=== PATIENT | male | born 1945 | race Caucasian/White ===

== ENCOUNTER → 2021-01-28 | Outpatient (CLI) | payer MEDICARE ==
[~2021-01-28] MED LIST: AMIO100T PO; CARV12.511 PO; HYDR-2761 PO; LISI10TA16 PO; LOVA40TA2 PO; METO50TA4 PO; OMEG-152 PO; SITA50TA PO; WARF3TAB50 PO
== END ==
LOC: LAB 10:08
PROVIDERS: ATTEND Ophthalmology
DX: Z01.812 Encounter for preprocedural laboratory examination (principal); Z20.822 Contact with and (suspected) exposure to COVID-19; H26.8 Other specified cataract
CPT/HCPCS: U0003; U0005

== ENCOUNTER → 2021-01-30 | Day surgery (SDC) | payer MEDICARE ==
[~2021-01-30] VITALS: Ht 175.3 cm; Wt 72.7 kg
[~2021-01-30] MED LIST changes: +CHONDROIT-SOD-HYALURONATE KIT. ONE; +CHONDROITIN-SOD-HYALURONATE 0.5 ML DISP.SYRIN. ONE; +CIPROFLOXACIN 0.3% OPHTH SOLUTION 5ML BOTTLE. OS ONE; +INSULIN LISPRO 100 UNIT/ML 3ML VIAL for OP,RR ONLY. SQ ONE; +INSULIN LISPRO 100 UNIT/ML 3ML VIAL for OP,RR ONLY. SQ PRN; +IV RINGERS,LACTATED 1000ML 1,000 ML IV SCH; +LIDOCAINE 1%/PHENYLEPH 1.5% PF OPHTH 1 ML VIAL. ONE; +LIDOCAINE 2% JELLY 6ML IN APPLICATOR. OS ONE; +NEO/POLYMYX/DEXAMETH OPHTH OINTMENT 3.5GM TUBE. ONE; +PROPARACAINE 0.5% OPHTH SOLUTION 15ML BOTTLE. OS ONE; +TRIAMCINOLONE ACET/PF OPHTH 40 MG/ML VIAL. IO ONE
[2021-01-30] MEDS: PHENYLEPHRINE 10% OPHTH SOLUTION 5ML BOTTLE. OS SCH ×3 (10:48→10:58)
[2021-01-30] MEDS: CYCLOPENTOLATE 1% OPHTH SOLUTION 2ML BOTTLE. OS SCH ×3 (10:50→11:00)
[2021-01-30 12:27] VITALS: BP 132/64
--- NOTE | 2021-01-30 12:43 | OP ---
DATE OF SURGERY: 01/30/2021 PREOPERATIVE DIAGNOSIS: Mature or incipient cataract of the left eye. PROCEDURES: Phacoemulsification with posterior chamber intraocular lens implant, with Trypan blue capsular staining and additional Viscoat to protect the endothelium. SURGEON: Kelly Stevens MD MEDICATIONS: Topical with monitored anesthesia care. DESCRIPTION OF PROCEDURE: The left eye was prepped with Betadine in the usual sterile fashion and draped. A paracentesis was performed followed by instillation of preservative-free phenylephrine admixed with lidocaine and balanced salt solution. A temporal clear corneal incision was made. Air was injected into the anterior chamber and Trypan blue was used to stain the anterior capsule. After 1 minute of duration, the Trypan blue was evacuated with Viscoat. The phacoemulsification handpiece was then used to punch the capsule to create an opening to relieve pressure from the incipient cataract. Viscoat was further injected into the anterior chamber and an adequate capsulorrhexis was performed. Balanced salt solution was used to hydrate the nucleus and it was removed in a modified stop and chop fashion, taking care to add additional Viscoat to protect the endothelium due to the mature nature of the cataract. The I/A handpiece was used to remove the remainder of the cortex and an adequate red reflex was visualized. An Erwin model SN60WF with a power of 21.5 diopters was placed into the capsular bag. Balanced salt solution was used to hydrate the corneal wounds and the viscoelastic evacuated with the IA handpiece. Once no leak was noted, Maxitrol was placed on the eye and the eye shielded and the patient was sent to the recovery room uneventfully. VIKAS DR: Papo TID: [id number]
== END | disposition home or self-care (01) ==
LOC: SURG 10:00 → EDUNIT# 11:00
PROVIDERS: ATTEND Ophthalmology
DX: E11.36 Type 2 diabetes mellitus with diabetic cataract (principal); H25.092 Other age-related incipient cataract, left eye; I11.0 Hypertensive heart disease with heart failure; I50.9 Heart failure, unspecified; E78.00 Pure hypercholesterolemia, unspecified; I48.91 Unspecified atrial fibrillation; J44.9 Chronic obstructive pulmonary disease, unspecified; M19.90 Unspecified osteoarthritis, unspecified site; I25.10 Atherosclerotic heart disease of native coronary artery without angina pectoris; Z87.891 Personal history of nicotine dependence; Z79.899 Other long term (current) drug therapy; Z98.890 Other specified postprocedural states
CPT/HCPCS: 66984; 82962; J0171; J0690; J1580; J1815; J3490; V2632; J3301

== ENCOUNTER 2021-02-13 09:59 | Day surgery (SDC) | payer MEDICARE ==
[~2021-02-13] VITALS: Ht 175.3 cm; Wt 72.0 kg
[~2021-02-13 09:59] MED LIST changes: -CHONDROIT-SOD-HYALURONATE KIT. ONE; -CHONDROITIN-SOD-HYALURONATE 0.5 ML DISP.SYRIN. ONE; +CIPROFLOXACIN 0.3% OPHTH SOLUTION 5ML BOTTLE. OD ONE; -CIPROFLOXACIN 0.3% OPHTH SOLUTION 5ML BOTTLE. OS ONE; -INSULIN LISPRO 100 UNIT/ML 3ML VIAL for OP,RR ONLY. SQ ONE; -INSULIN LISPRO 100 UNIT/ML 3ML VIAL for OP,RR ONLY. SQ PRN; -LIDOCAINE 1%/PHENYLEPH 1.5% PF OPHTH 1 ML VIAL. ONE; +LIDOCAINE 2% JELLY 6ML IN APPLICATOR. OD ONE; -LIDOCAINE 2% JELLY 6ML IN APPLICATOR. OS ONE; -NEO/POLYMYX/DEXAMETH OPHTH OINTMENT 3.5GM TUBE. ONE; +PROPARACAINE 0.5% OPHTH SOLUTION 15ML BOTTLE. OD ONE; -PROPARACAINE 0.5% OPHTH SOLUTION 15ML BOTTLE. OS ONE; -TRIAMCINOLONE ACET/PF OPHTH 40 MG/ML VIAL. IO ONE
[2021-02-13] MEDS ORDERED: CHONDROIT-SOD-HYALURONATE KIT. ONE (10:08)
[2021-02-13] MEDS ORDERED: LIDOCAINE 1%/PHENYLEPH 1.5% PF OPHTH 1 ML VIAL. ONE (10:08)
[2021-02-13] MEDS ORDERED: TRYPAN BLUE 0.06% INTRAOCULAR 0.5 ML SYRINGE. ONE (10:08)
[2021-02-13] MEDS ORDERED: LIDOCAINE 2% JELLY 6ML IN APPLICATOR. ONE (10:08)
[2021-02-13] MEDS ORDERED: BALANCED SALT IRRIG OPHTH SOLN 15 ML BOTTLE. ONE (10:08)
[2021-02-13] MEDS ORDERED: CHONDROITIN-SOD-HYALURONATE 0.5 ML DISP.SYRIN. ONE (10:08)
[2021-02-13] MEDS ORDERED: NEO/POLYMYX/DEXAMETH OPHTH OINTMENT 3.5GM TUBE. ONE (10:08)
[2021-02-13 10:41] VITALS: BP 148/69
[2021-02-13] MEDS: CYCLOPENTOLATE 1% OPHTH SOLUTION 2ML BOTTLE. OD SCH ×3 (10:50→11:00)
[2021-02-13] MEDS: PHENYLEPHRINE 10% OPHTH SOLUTION 5ML BOTTLE. OD SCH ×3 (10:50→11:00)
[2021-02-13] MEDS ORDERED: INSULIN LISPRO 100 UNIT/ML 3ML VIAL for OP,RR ONLY. SQ PRN (11:00)
[2021-02-13] MEDS ORDERED: INSULIN LISPRO 100 UNIT/ML 3ML VIAL for OP,RR ONLY. SQ ONE (11:05)
--- NOTE | 2021-02-13 12:44 | OP ---
DATE OF SURGERY: 02/13/2021 PREOPERATIVE DIAGNOSIS: Cataract of the right eye. PROCEDURE: Phacoemulsification with posterior chamber intraocular lens implantation of the right eye. SURGEON: Kelly Stevens MD ANESTHESIA: Topical with monitored anesthesia care. DESCRIPTION OF PROCEDURE: The right eye was prepped with Betadine in the usual sterile fashion and draped. A paracentesis was performed followed by instillation of preservative-free phenylephrine admixed with lidocaine and balanced salt solution. Viscoat was then injected in the anterior chamber and a temporal clear corneal incision was made followed by capsulorrhexis. Hydrodissection was done and the phacoemulsification handpiece was used to remove the nucleus in a modified stop and chop fashion. The I/A handpiece was used to remove the cortex and Provisc was injected in the anterior chamber. An Erwin model SN60WF with a power of 21.0 diopters was placed into the capsular bag and balanced salt solution was used to hydrate the corneal wounds. Viscoelastic was evacuated and once no leak was noted, Maxitrol was placed on the eye and the eye shielded and the patient was sent to the recovery room uneventfully. MARVIN DR: Papo TID: [id number]
[2021-02-13 12:45] VITALS: BP 150/76
== END 2021-02-13 12:55 | disposition home or self-care (01) ==
LOC: SURG 09:59 → EDUNIT# 12:00 → SURG 12:55
PROVIDERS: ATTEND Ophthalmology
DX: E11.36 Type 2 diabetes mellitus with diabetic cataract (principal); H25.89 Other age-related cataract; I11.0 Hypertensive heart disease with heart failure; I50.9 Heart failure, unspecified; E78.00 Pure hypercholesterolemia, unspecified; K21.9 Gastro-esophageal reflux disease without esophagitis; I48.91 Unspecified atrial fibrillation; J44.9 Chronic obstructive pulmonary disease, unspecified; M19.90 Unspecified osteoarthritis, unspecified site; I25.10 Atherosclerotic heart disease of native coronary artery without angina pectoris; Z85.828 Personal history of other malignant neoplasm of skin; Z79.899 Other long term (current) drug therapy; Z79.82 Long term (current) use of aspirin; Z79.84 Long term (current) use of oral hypoglycemic drugs; Z87.891 Personal history of nicotine dependence; Z98.890 Other specified postprocedural states
CPT/HCPCS: 66984; 82962; J0171; J0690; J1580; J1815; J3490; V2632